=== PATIENT | male | born 1975 | race Two or more races ===

== ENCOUNTER 2017-03-15 08:24 | Emergency (ER) | payer BC, MEDICAID ==
[2017-03-15] MEDS ORDERED: PREDNISONE 20 MG TABLET PO ONE (08:47)
[2017-03-15] MEDS ORDERED: IPRATROPIUM/ALBUTEROL 0.5-2.5 MG/3 ML AMPUL NEB ONE (08:47)
[2017-03-15] MEDS ORDERED: ALBUTEROL SULFATE 0.083% NEB 2.5 MG/3 ML AMPUL NEB ONE (08:47)
--- NOTE | 2017-03-15 09:13 | RADIOLOGY REPORT (SQ) ---
EXAM DESCRIPTION: CHEST PA/LAT COMPLETED DATE/TIME: 03/15/2017 9:02 am REASON FOR STUDY: sob COMPARISON: 08/18/2016. EXAM PARAMETERS: NUMBER OF VIEWS: two views TECHNIQUE: Digital Frontal and Lateral radiographic views of the chest acquired. RADIATION DOSE: NA LIMITATIONS: none FINDINGS: LUNGS AND PLEURA: No opacities, masses or pneumothorax. No pleural effusion. MEDIASTINUM AND HILAR STRUCTURES: No masses or contour abnormalities. HEART AND VASCULAR STRUCTURES: Heart normal size. No evidence for failure. BONES: No acute findings. HARDWARE: None in the chest. OTHER: No other significant finding. IMPRESSION: NO SIGNIFICANT RADIOGRAPHIC FINDING IN THE CHEST. TECHNICAL DOCUMENTATION: JOB ID: [id number] [employer]- All Rights Reserved
--- NOTE | 2017-03-15 09:53 | ER Document Report ---
ED General - General Chief Complaint: Shortness Of Breath Stated Complaint: COUGH/SHORTNESS OF BREATH Time Seen by Provider: 03/15/17 08:46 TRAVEL OUTSIDE OF THE [place] IN LAST 30 DAYS: No - HPI Patient complains to provider of: Shortness of breath Notes: Patient coming in for shortness of breath. Patient has a history of asthma. Patient denies any fever chills nausea vomiting patient denies any recent history of travel or sick contacts. Patient denies any recent antibiotics or steroids. Patient states no relief with albuterol at home. Patient denies history of intubations. Patient is awake alert no complications. - Related Data Allergies/Adverse Reactions: No Known Allergies Allergy (Verified 08/18/16 16:28) Past Medical History - Social History Smoking Status: Never Smoker Chew tobacco use (# tins/day): No Frequency of alcohol use: None Drug Abuse: None Family History: Reviewed & Not Pertinent Patient has suicidal ideation: No Patient has homicidal ideation: No - Past Medical History Cardiac Medical History: Reports: Hx Heart Murmur Pulmonary Medical History: Reports: Hx Asthma Renal/ Medical History: Denies: Hx Peritoneal Dialysis - Immunizations Hx Diphtheria, Pertussis, Tetanus Vaccination: Yes Review of Systems - Review of Systems Constitutional: No symptoms reported EENT: No symptoms reported Cardiovascular: No symptoms reported Respiratory: Short of breath Gastrointestinal: No symptoms reported Genitourinary: No symptoms reported Male Genitourinary: No symptoms reported Musculoskeletal: No symptoms reported Skin: No symptoms reported Hematologic/Lymphatic: No symptoms reported Neurological/Psychological: No symptoms reported -: Yes All other systems reviewed and negative Physical Exam - Vital signs Vitals: Temp Pulse Resp BP Pulse Ox 98.2 F 95 22 H 145/71 H 95 03/15/17 08:26 03/15/17 08:26 03/15/17 08:26 03/15/17 08:26 03/15/17 08:26 Interpretation: Normal - General General appearance: Appears well, Alert - HEENT Head: Normocephalic, Atraumatic Eyes: Normal Pupils: PERRL - Respiratory Respiratory status: No respiratory distress Chest status: Nontender Breath sounds: Wheezing Chest palpation: Normal - Cardiovascular Rhythm: Regular Heart sounds: Normal auscultation Murmur: No - Abdominal Inspection: Normal Distension: No distension Bowel sounds: Normal Tenderness: Nontender Organomegaly: No organomegaly - Back Back: Normal, Nontender - Extremities General upper extremity: Normal inspection, Nontender, Normal color, Normal ROM , Normal temperature General lower extremity: Normal inspection, Nontender, Normal color, Normal ROM , Normal temperature, Normal weight bearing. No: Jamari's sign - Neurological Neuro grossly intact: Yes Cognition: Normal Orientation: AAOx4 [place] Coma Scale Eye Opening: Spontaneous [place] Coma Scale Verbal: Oriented [place] Coma Scale Motor: Obeys Commands [place] Coma Scale Total: 15 Speech: Normal Motor strength normal: LUE, RUE, LLE, RLE Sensory: Normal - Psychological Associated symptoms: Normal affect, Normal mood - Skin Skin Temperature: Warm Skin Moisture: Dry Skin Color: Normal Course - Re-evaluation Re-evalutation: 03/15/17 15:51 Patient was seen for shortness of breath. Patient was to have a mild asthma exacerbation. Patient was improved after his steroids and multiple albuterol treatments. Patient will be discharged home patient states he does have any albuterol at home patient will be given prednisone encouraged follow-up primary care physician - Vital Signs Vital signs: Temp Pulse Resp BP Pulse Ox 97.5 F 88 16 116/61 98 03/15/17 10:24 03/15/17 10:24 03/15/17 10:24 03/15/17 10:24 03/15/17 10:24 Discharge - Discharge Clinical Impression: Asthma Qualifiers: Asthma severity: unspecified severity Asthma complication type: with acute exacerbation Qualified Code(s): J45.901 - Unspecified asthma with (acute) exacerbation Condition: Good Disposition: HOME, SELF-CARE Instructions: Asthma ([facility]) Additional Instructions: Take medications as prescribed. Please use your inhaler or nebulizer 2 puffs or 1 treatment every 4 hours for the next 5 days. Return to the ER symptoms worsen. Please follow-up with primary care physician as needed. I do highly recommend starting yourself on antihistamine such as Zyrtec or Claritin or Xyzal Prescriptions: Cetirizine HCl [Zyrtec 10 mg Tablet] 1 tab PO DAILY #30 tablet Prednisone [Deltasone 20 mg Tablet] 60 mg PO DAILY 5 Days Forms: Return to Work
[2017-03-15 10:25] VITALS: BP 116/61
--- NOTE | 2017-03-15 17:29 | EKG REPORT ---
SEVERITY:- ABNORMAL ECG - SINUS RHYTHM ABNRM R PROG, CONSIDER ASMI OR LEAD PLACEMENT ST ELEVATION NONSPECIFIC : Confirmed by: José Miguel Paulino MD 15-Mar-2017 17:28:36
== END 2017-03-15 10:25 | disposition home or self-care (01) ==
LOC: ER 08:24
DX: J45.901 Unspecified asthma with (acute) exacerbation (principal); R06.02 Shortness of breath
CPT/HCPCS: 93005; 94640 ×2; 99285; 71020; 93010; J7512; J7620